=== PATIENT | female | born 1945 | race Caucasian/White ===

== ENCOUNTER 2018-04-20 21:57 | Observation (INO) | payer MEDICARE, OTHER ==
[~2018-04-20] VITALS: Ht 162.6 cm; Wt 63.1 kg
[2018-04-20 22:07] VITALS: BP 125/74; PULSE 90; RESP 18; TEMP 98.1; O2SAT 96
--- NOTE | 2018-04-20 22:20 | PD ---
HPI Chief Complaint: Abdominal Pain Time Seen by Provider: 22:19 Travel History International Travel<30 days: No Contact w/Intl Traveler<30days: No Traveled to known affect area: No History of Present Illness HPI Patient comes in providing a 3 day history of upper abdominal pain epigastric, right upper quadrant and left upper quadrant pain is rated as a 7 out of 10... Intermittently occurring and lasting minutes at a time. However over the last day or so the patient has started to notice that the pain appears to be radiating up towards her neck and left shoulder..... No alleviating or aggravating factors. Patient denies any associated factors such as fever, rash , cough, runny nose, sore throat, nausea, vomiting, diarrhea. Primary care doctor is Dr. Maury Burris, [employer] Dr. 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 PFSH Social History Tobacco Use: No Allergies-Medications (Allergen,Severity, Reaction): Coded Allergies: No Known Allergies (Unverified , 04/20/18) Reported Meds & Prescriptions Reported Meds & Active Scripts Active Reported Digoxin 0.125 Mg Tab 0.125 Mg PO DAILY Diltiazem CD 24 HR 360 Mg Capcr 360 Mg PO DAILY Advair Diskus Inh (Fluticasone-Salmeterol Inh) 250-50 Mcg/Blist Aer 1 Puff INH BID Rinse mouth after use. Pravastatin 20 Mg Tab 20 Mg PO DAILY Review of Systems General / Constitutional: No: Fever Eyes: No: Visual changes HENT: No: Headaches Cardiovascular: Positive: Chest Pain or Discomfort Respiratory: No: Shortness of Breath Gastrointestinal: Positive: Abdominal Pain Genitourinary: No: Dysuria Musculoskeletal: No: Pain Skin: No Rash Neurologic: No: Weakness Psychiatric: No: Depression Endocrine: No: Polydipsia Hematologic/Lymphatic: No: Easy Bruising Physical Exam Narrative GENERAL: Well-nourished, well-developed patient in no apparent distress. SKIN: Warm and dry. HEAD: Atraumatic. Normocephalic. EYES: Pupils equal and round. No scleral icterus. No injection or drainage. ENT: No nasal bleeding or discharge. Mucous membranes pink and moist. NECK: Trachea midline. No JVD. CARDIOVASCULAR: Regular rate and rhythm. no rubs or gallops RESPIRATORY: No accessory muscle use. Clear to auscultation. Breath sounds equal bilaterally. GASTROINTESTINAL: Abdomen soft, non-tender, nondistended. No rebound or guarding MUSCULOSKELETAL: Extremities without clubbing, cyanosis, or edema. No obvious deformities. NEUROLOGICAL: Awake and alert. No obvious cranial nerve deficits. Motor grossly within normal limits. Five out of 5 muscle strength in the arms and legs. Normal speech. PSYCHIATRIC: Appropriate mood and affect; insight and judgment normal. Data Data Last Documented VS Orders Orders Electrocardiogram (04/20/18 22:25) B-Type Natriuretic Peptide (04/20/18 22:) Ckmb (Isoenzyme) Profile (04/20/18 22:) Complete Blood Count With Diff (04/20/18:) Comprehensive Metabolic Panel (04/20/18:) D-Dimer (04/20/18:) Prothrombin Time / Inr (Pt) (04/20/18:) Act Partial Throm Time (Ptt) (04/20/18:) Troponin I (04/20/18:) Lipase (04/20/18 22:25) Chest, Single Ap (04/20/18 22:25) Ecg Monitoring (04/20/18 22:) Bilateral Bp Monitoring (04/20/18:) Iv Access Insert/Monitor (04/20/18:) Oximetry (04/20/18 22:) Oxygen Administration (04/20/18 22:25) Morphine Inj (Morphine Inj) (04/20/18 22:30) Sodium Chloride 0.9% Flush (Ns Flush) (04/20/18:30) Metoclopramide Inj (Reglan Inj) (04/20/18 22:30) Aspirin Chew (Aspirin Chew) (04/20/18 23:30) Nitroglycerin 2% Oint (Nitroglycerin 2% (04/20/18 23:30) Ct Abd/Pel W/O Iv Contrast (04/20/18 23:29) Admit Order (Ed Use Only) (04/20/18 23:38) Labs Laboratory Tests Test 04/20/18 22:30 White Blood Count 8.4 TH/MM3 Red Blood Count 4.36 MIL/MM3 Hemoglobin 13.4 GM/DL Hematocrit 39.2 % Mean Corpuscular Volume 90.0 FL Mean Corpuscular Hemoglobin 30.7 PG Mean Corpuscular Hemoglobin Concent 34.1 % Red Cell Distribution Width 12.7 % Platelet Count 242 TH/MM3 Mean Platelet Volume 8.2 FL Neutrophils (%) (Auto) 68.1 % Lymphocytes (%) (Auto) 23.8 % Monocytes (%) (Auto) 4.6 % Eosinophils (%) (Auto) 2.9 % Basophils (%) (Auto) 0.6 % Neutrophils # (Auto) 5.7 TH/MM3 Lymphocytes # (Auto) 2.0 TH/MM3 Monocytes # (Auto) 0.4 TH/MM3 Eosinophils # (Auto) 0.2 TH/MM3 Basophils # (Auto) 0.1 TH/MM3 CBC Comment DIFF FINAL Differential Comment Prothrombin Time 11.2 SEC Prothromb Time International Ratio 1.1 RATIO Activated Partial Thromboplast Time 24.4 SEC D-Dimer Quantitative (PE/DVT) 0.48 MG/L FEU Blood Urea Nitrogen 10 MG/DL Creatinine 0.78 MG/DL Random Glucose 86 MG/DL Total Protein 7.4 GM/DL Albumin 3.6 GM/DL Calcium Level 8.6 MG/DL Alkaline Phosphatase 72 U/L Aspartate Amino Transf (AST/SGOT) 12 U/L Alanine Aminotransferase (ALT/SGPT) 19 U/L Total Bilirubin 0.3 MG/DL Sodium Level 134 MEQ/L Potassium Level 4.1 MEQ/L Chloride Level 101 MEQ/L Carbon Dioxide Level 26.0 MEQ/L Anion Gap 7 MEQ/L Estimat Glomerular Filtration Rate 73 ML/MIN Total Creatine Kinase 87 U/L Troponin I LESS THAN 0.02 NG/ML B-Type Natriuretic Peptide 32 PG/ML Lipase 152 U/L [facility] Medical Decision Making Medical Screen Exam Complete: Yes Emergency Medical Condition: Yes Medical Record Reviewed: Yes Interpretation(s) Pulse ox with excellent pleth wave, pulse oximetry is between 96 and 100 which is within normal limits on room air. EKG shows normal sinus rhythm, 82 bpm, normal intervals, no evidence of any ST elevation GA, nonspecific ST-T changes Differential Diagnosis Pancreatitis versus biliary colic versus colitis versus diverticulitis versus atypical STEMI versus atypical non-STEMI versus atypical chest pain Narrative Course CBC shows no leukocytosis no anemia normal platelet count and no left shift Coagulation profile is within normal limits D-dimer is negative Electrolytes are all within normal limits, normal kidney liver and pancreatic functions. First set of cardiac enzymes negative The patient's evaluation thus far has revealed negative abdominal workup, however it was somewhat worrisome that the patient experienced some radiation to her neck, thus I believe it would be prudent to have the patient admitted for observation to rule out for atypical presentation of cardiac event. Diagnosis Primary Impression: Atypical chest Admitting Information Admitting Physician Requests: Observation Sukhwinder Escalante MD April 20, 2018 22:20
[2018-04-20] MEDS ORDERED: DIGO0.12 PO (22:26)
[2018-04-20] MEDS ORDERED: ADVA250A INH (22:26)
[2018-04-20] MEDS ORDERED: DILT360C12 PO (22:26)
[2018-04-20] MEDS ORDERED: DILT120T PO (22:26)
[2018-04-20] MEDS ORDERED: PRAV20TA2 PO (22:26)
[2018-04-20] MEDS ORDERED: METOCLOPRAMIDE HCL 10 MG/2 ML VIAL IV PUSH ONE (22:30)
[2018-04-20] MEDS ORDERED: MORPHINE SULFATE 4 MG/ML INJ IV PUSH ONE (22:30)
[2018-04-20] MEDS ORDERED: SODIUM CHLORIDE 0.9% FLUSH 10 ML FLUSH IVF PRN (22:30)
[2018-04-20 22:33] VITALS: BP 143/80; PULSE 90; RESP 18; O2SAT 99
[2018-04-20 22:39] LABS: AUTOMATED NEUTROPHIL # 5.7 TH/MM3 (1.8-7.7); BASOPHIL # 0.1 TH/MM3 (0-0.2); BASOPHIL % 0.6 % (0.0-2.0); EOSINOPHIL # 0.2 TH/MM3 (0-0.4); EOSINOPHIL % 2.9 % (0.0-4.0); HEMATOCRIT 39.2 % (35.0-46.0); HEMOGLOBIN 13.4 GM/DL (11.6-15.3); LYMPH % 23.8 % (9.0-44.0); MEAN CORPUSCULAR HEMOGLOBIN 30.7 PG (27.0-34.0); MEAN CORPUSCULAR HGB CONC 34.1 % (32.0-36.0); MEAN PLATELET VOLUME 8.2 FL (7.0-11.0); MONO % 4.6 % (0.0-8.0); MONOCYTE # 0.4 TH/MM3 (0-0.9); NEUT % 68.1 % (16.0-70.0); PLATELET COUNT 242 TH/MM3 (150-450); RED BLOOD COUNT 4.36 MIL/MM3 (4.00-5.30); RED CELL DISTRIBUTION WIDTH 12.7 % (11.6-17.2); WHITE BLOOD COUNT 8.4 TH/MM3 (4.0-11.0)
--- NOTE | 2018-04-20 22:46 | RADRPT ---
EXAM DATE: 04/20/2018 10:38 PM EDT AGE/SEX: 72 years / Female INDICATIONS: Pain right and left lower anterior chest, short of breath CLINICAL DATA: This is the patient's initial encounter. Patient reports that signs and symptoms have been present for 1 day and indicates a pain score of 10/10. MEDICAL/SURGICAL HISTORY: Chronic obstructive pulmonary disease. Cardiovascular disease. CABG. COMPARISON: No prior [facility] exams available for comparison. FINDINGS: Lungs are hyperinflated. There is diffuse interstitial prominence. There is no evidence of consolidat ing airspace disease mass densities or effusions. Heart is normal in size. Median sternotomy wires are noted. Osseous structures are intact. CONCLUSION: COPD with chronic appearing interstitial lung disease. No evidence of consolidating airspace disease Electronically signed by: Guanako Casas MD 04/20/2018 10:44 PM EDT
[2018-04-20 22:47] LABS: CHLORIDE 101 MEQ/L (98-107); SODIUM (NA) 134 MEQ/L (136-145)
[2018-04-20 22:49] VITALS: BP 124/73; PULSE 78; RESP 16; O2SAT 99
[2018-04-20 22:51] LABS: ALBUMIN 3.6 GM/DL (3.4-5.0); CALCIUM 8.6 MG/DL (8.5-10.1); GLUCOSE,RANDOM 86 MG/DL (74-106)
[2018-04-20 22:52] LABS: BLOOD UREA NITROGEN 10 MG/DL (7-18)
[2018-04-20 22:54] LABS: ALT (GPT) 19 U/L (10-53); AST (GOT) 12 U/L (15-37); CREATININE 0.78 MG/DL (0.50-1.00); GLOMERULAR FILTRATION RATE 73 ML/MIN (>89); INTERNATIONAL NORMALIZED RATIO 1.1 RATIO; PROTHROMBIN TIME - PATIENT 11.2 SEC (9.8-11.6)
[2018-04-20 22:56] LABS: TOTAL BILIRUBIN ADULT 0.3 MG/DL (0.2-1.0); TOTAL PROTEIN 7.4 GM/DL (6.4-8.2)
[2018-04-20 22:57] LABS: ALKALINE PHOSPHATASE 72 U/L (45-117)
[2018-04-20 22:59] LABS: TROPONIN I LESS THAN 0.02 NG/ML (0.02-0.05)
[2018-04-20 23:05] LABS: D-DIMER 0.48 MG/L FEU (0.00-0.50)
[2018-04-20] MEDS ORDERED: ASPIRIN 81 MG CHEW TAB PO ONE (23:30)
[2018-04-20] MEDS ORDERED: NITROGLYCERIN 2% OINT 1 GM PACKET TOP ONE (23:30)
--- NOTE | 2018-04-21 00:11 | RADRPT ---
EXAM DATE: 04/21/2018 12:02 AM EDT AGE/SEX: 72 years / Female INDICATIONS: Bilateral upper quadrant pain x 3 days. CLINICAL DATA: This is the patient's initial encounter. Patient reports that signs and symptoms have been present for 3 days and indicates a pain score of 7/10. MEDICAL/SURGICAL HISTORY: Cardiovascular disease. Chronic obstructive pulmonary disease. Hyste rectomy. Fusion, cervical. Cardiac surgery to remove tumor. RADIATION DOSE: 8.34 CTDI (mGy) COMPARISON: No prior exams available for comparison. TECHNIQUE: Multiple contiguous axial images were obtained through the abdomen. Images were obtained using multiple row detector helical technique. Using dose reduction techniques, radiation dose was ke pt as low as reasonably achievable to obtain optimal diagnostic quality images. FINDINGS: Abdomen CT: The liver, spleen, pancreas, kidneys, adrenals are unremarkable. Tiny splenic splenule is seen. There is no evidence for any stones in the kidneys or the course of the ureters on either side. There is n o hydronephrosis. There is no evidence for any appreciable pathological adenopathy, free fluid, or bowel obstruction. There is scarring in right middle lobe and lingula. There are atherosclerotic guillermo cifications involving the aorta and iliac arteries chronic in nature. Pelvic CT: There is no evidence for mass, abscess formation, or any significant adenopathy within the pelvis. T here is moderate amount of stool in the colon. CONCLUSION: Essentially unremarkable study except for stool and chronic atherosclerotic calcificatio ns of the aorta. Electronically signed by: Claudio Lima MD 04/21/2018 12:10 AM EDT
[2018-04-21 00:27] VITALS: BP 116/57; PULSE 81; RESP 16; O2SAT 96
[2018-04-21 01:25] VITALS: BP 119/69; PULSE 78; RESP 16; O2SAT 99
[2018-04-21 02:39] VITALS: PULSE 83
[2018-04-21] MEDS ORDERED: MORPHINE SULFATE 4 MG/ML INJ IV PUSH PRN (03:45)
[2018-04-21] MEDS ORDERED: ACETAMINOPHEN 325 MG TAB PO PRN (03:45)
[2018-04-21] MEDS ORDERED: SENNOSIDES 8.6 MG TAB PO PRN (03:45)
[2018-04-21] MEDS ORDERED: NALOXONE HCL 0.4 MG/ML AMP IV PUSH PRN (03:45)
[2018-04-21] MEDS ORDERED: SODIUM CHLORIDE 0.9% FLUSH 10 ML FLUSH IV FLUSH PRN (03:45)
[2018-04-21] MEDS ORDERED: MAGNESIUM HYDROXIDE SUSP 30 ML CUP PO PRN (03:45)
[2018-04-21] MEDS ORDERED: BISACODYL 10 MG SUPP RECTAL PRN (03:45)
[2018-04-21] MEDS ORDERED: LACTULOSE SYRUP 20 GM/30 ML CUP PO PRN (03:45)
[2018-04-21 04:13] VITALS: BP 114/66; PULSE 84; RESP 20; TEMP 96.4; O2SAT 91
--- NOTE | 2018-04-21 07:53 | EKG ---
Date Performed: 04/21/2018 Time Performed: 04:17:22 PTAGE: 72 years EKG: Sinus rhythm NONSPECIFIC ST ABNORMALITY ABNORMAL ECG PREVIOUS TRACING : 04/21/2018 01.51 No significant change from previous tracing noted. DOCTOR: Earnest Almonte Interpretating Date/Time 04/21/2018 07:51:55
[2018-04-21 08:00] VITALS: PULSE 83
--- NOTE | 2018-04-21 08:01 | EKG ---
Date Performed: 04/21/2018 Time Performed: 01:51:54 PTAGE: 72 years EKG: Sinus rhythm NONSPECIFIC ST DEPRESSION BORDERLINE ECG PREVIOUS TRACING : 04/20/2018 23.07 No significant change from previous tracing noted. DOCTOR: Earnest Almonte Interpretating Date/Time 04/21/2018 07:59:47
--- NOTE | 2018-04-21 08:06 | EKG ---
Date Performed: 04/20/2018 Time Performed: 23:07:18 PTAGE: 72 years EKG: Sinus rhythm LOW QRS VOLTAGE IN PRECORDIAL LEADS BORDERLINE ECG NO PREVIOUS TRACING DOCTOR: Earnest Almonte Interpretating Date/Time 04/21/2018 08:04:12
[2018-04-21 08:35] VITALS: BP 103/58; PULSE 81; RESP 17; TEMP 97.7; O2SAT 92
[2018-04-21] MEDS ORDERED: SODIUM CHLORIDE 0.9% FLUSH 10 ML FLUSH IV FLUSH SCH (09:00)
--- NOTE | 2018-04-21 09:08 | HHI.DCPOC ---
Discharge Care Plan Diagnosis: (1) Abdominal pain Goals to Promote Your Health * To prevent worsening of your condition and complications * To maintain your health at the optimal level Directions to Meet Your Goals Take your medications as prescribed Follow your dietary instruction Follow activity as directed Keep your appointments as scheduled Take your immunizations and boosters as scheduled If your symptoms worsen call your PCP, if no PCP go to Urgent Care Center or Emergency Room Smoking is Dangerous to Your Health. Avoid second hand smoke Call the 24-hour hour crisis hotline for domestic abuse at Norman Khan April 21, 2018 09:08
--- NOTE | 2018-04-21 09:51 | HHI.HP ---
[facility] Service [facility] Primary Care Physician Nathanael Linda Admission Diagnosis ATYPICAL CP R/O [place] Diagnoses: (1) Abdominal pain Diagnosis: Principal Travel History International Travel<30 Days: No Contact w/Intl Traveler <30 Da: No Traveled to Known Affected Are: No History of Present Illness Written by Norman Khan, acting as scribe for Dr. Smallwood on 04/21/18 at 09: 51. 72-year-old female with known history of hyperlipidemia, chronic obstructive pulmonary disease, arrhythmia, who presented to the hospital because of upper abdominal pain. Patient states that for 3 days that she has had a constant pressure-like pain in her upper abdomen epigastric region. She states that intermittently she can feel a pressure sensation in the mid part of her chest which has a crescendo type pain from a 2/10 on a pain scale up to a 8/ 10 on a pain scale. States that the pain does come back every couple of hours and usually lasts for a few minutes at a time. Because she had the pain yesterday and it was 8/10 and she has not had any improvement she thought she might be having a heart attack so she called 911. Patient denied any nausea, vomiting, shortness of breath, dyspnea, diaphoresis, lightheadedness, dizziness. The radiator specialist evaluated the patient and told that everything was normal at that time. However they recommended her to go to the hospital so her drove her to the hospital for evaluation. Patient had a complete workup with laboratory studies, EKGs, chest x-ray, CT of the abdomen which everything was unremarkable to determine any etiology of her discomfort. He is recommended by the ER physician that the patient be observed in the hospital for further recommendations. Patient indicates that she usually goes to Dr. Almonte, for her cardiology needs and last time that she saw him was 2 years ago. She indicates that she had a last stress test and workup 3 years ago. She cannot have a exercise stress test due to her heart rate and valvular issues. And she will not undergo any myocardial perfusion study because she had an adverse reaction to it the last time. Presently the patient is completely asymptomatic. The pain resolved at approximately night last night without any form of treatment. Patient is asking if she can go home. Review of Systems Gastrointestinal: COMPLAINS OF: Abdominal pain Except as stated in HPI: all other systems reviewed are Neg Past Family Social History Past Medical History Cardiac valve problems Cardiac arrhythmia Hyper lipidemia Chronic obstructive pulmonary disease Chronic tobacco use Past Surgical History Open heart surgery for valvular surgery Cervical spine fusion Hysterectomy Reported Medications Reported Meds & Active Scripts Active Reported Digoxin 0.125 Mg Tab 0.125 Mg PO DAILY Diltiazem CD 24 HR 360 Mg Capcr 360 Mg PO DAILY Advair Diskus Inh (Fluticasone-Salmeterol Inh) 250-50 Mcg/Blist Aer 1 Puff INH BID Rinse mouth after use. Pravastatin 20 Mg Tab 20 Mg PO DAILY Allergies: Coded Allergies: No Known Allergies (Unverified , 04/20/18) Family History Family history was reviewed and significant for mother with ovarian cancer, father with bladder cancer, congestive heart failure. Brother with diabetes and heart disease Physical Exam Vital Signs Vital Signs Date Time Temp Pulse Resp B/P (MAP) Pulse Ox O2 Delivery O2 Flow Rate FiO2 04/21/18 08:35 97.7 81 17 103/58 (73) 92 04/21/18 08:00 83 04/21/18 04:13 96.4 84 20 114/66 (82) 91 04/21/18 02:39 83 04/21/18 01:25 04/21/18 01:25 78 16 119/69 (86) 99 Room Air 04/21/18 00:27 81 16 116/57 (76) 96 Room Air 04/20/18 22:49 78 16 124/73 (90) 99 Nasal Cannula 2.00 04/20/18 22:33 90 18 143/80 (101) 99 Nasal Cannula 2.00 04/20/18 22:33 99 Nasal Cannula 2.00 04/20/18 22:07 98.1 90 18 125/74 (91) 96 Physical Exam GENERAL: Well-developed, well-nourished, in no acute distress. alert and orientated HEENT: Head is normocephalic without any lesions or masses noted. Facial features are symmetric. Eyes: Pupils equal round reactive to light. Extraocular muscles are intact. Conjunctivae were clear. Oropharyngeal: Pharynx without any erythema edema. Tongue is midline without deviation. Buccal mucosa is moist without any masses or lesions NECK: Supple without any masses. Trachea midline no deviation. No JVD, no bruits are appreciated CARDIAC: Regular rhythm, regular rate. S1/S2 are heard. No murmurs gallops or rubs. LUNGS: Clear to auscultation bilaterally. No wheeze, rhonchi or rales. No use of accessory muscles on inspiration or expiration. ABDOMEN: Soft, nontender. Nondistended. Bowel sounds heard in all 4 quadrants. No organomegaly or masses. Negative rebound, negative guarding EXTREMITIES: No edema, pulses are equal bilaterally. No cyanosis or clubbing NEUROLOGY: Mood and affect appear appropriate. Cranial nerves II through XII grossly intact. Muscle strength 5/5 in upper and lower extremities bilaterally. Deep tendon reflexes are 2+ in upper and lower extremities bilaterally. Laboratory Laboratory Tests Test 04/20/18 22:30 04/21/18 01:49 04/21/18 04:25 White Blood Count 8.4 Red Blood Count 4.36 Hemoglobin 13.4 Hematocrit 39.2 Mean Corpuscular Volume 90.0 Mean Corpuscular Hemoglobin 30.7 Mean Corpuscular Hemoglobin Concent 34.1 Red Cell Distribution Width 12.7 Platelet Count 242 Mean Platelet Volume 8.2 Neutrophils (%) (Auto) 68.1 Lymphocytes (%) (Auto) 23.8 Monocytes (%) (Auto) 4.6 Eosinophils (%) (Auto) 2.9 Basophils (%) (Auto) 0.6 Neutrophils # (Auto) 5.7 Lymphocytes # (Auto) 2.0 Monocytes # (Auto) 0.4 Eosinophils # (Auto) 0.2 Basophils # (Auto) 0.1 CBC Comment DIFF FINAL Differential Comment Prothrombin Time 11.2 Prothromb Time International Ratio 1.1 Activated Partial Thromboplast Time 24.4 D-Dimer Quantitative (PE/DVT) 0.48 Blood Urea Nitrogen 10 Creatinine 0.78 Random Glucose 86 Total Protein 7.4 Albumin 3.6 Calcium Level 8.6 Alkaline Phosphatase 72 Aspartate Amino Transf (AST/SGOT) 12 Alanine Aminotransferase (ALT/SGPT) 19 Total Bilirubin 0.3 Sodium Level 134 Potassium Level 4.1 Chloride Level 101 Carbon Dioxide Level 26.0 Anion Gap 7 Estimat Glomerular Filtration Rate 73 Total Creatine Kinase 87 Troponin I LESS THAN 0.02 LESS THAN 0.02 LESS THAN 0.02 B-Type Natriuretic Peptide 32 Lipase 152 Result Diagram: 04/20/18222904/20/182229 Imaging Last Impressions Abdomen/Pelvis CT 04/20/182328 Signed Impressions: CONCLUSION: Essentially unremarkable study except for stool and chronic athero sclerotic calcifications of the aorta. Chest X-Ray 04/20/182224 Signed Impressions: CONCLUSION: COPD with chronic appearing interstitial lung disease. No evidence of consolidating airspace disease Caprini VTE Risk Assessment Caprini VTE Risk Assessment: No/Low Risk (score <= 1) Caprini Risk Assessment Model Point Value = 1 Point Value = 2 Point Value = 3 Point Value = 5 Age 41-60 Minor surgery BMI > 25 kg/m2 Swollen legs Varicose veins or History of unexplained or recurrent spontaneous Oral contraceptives or hormone replacement Sepsis (< 1 month) Serious lung disease, including pneumonia (< 1 month) Abnormal pulmonary function Acute myocardial infarction Congestive heart failure (< 1 month) History of inflammatory bowel disease Medical patient at bed rest Age 61-74 Arthroscopic surgery Major open surgery (> 45 min) Laparoscopic surgery (> 45 min) Malignancy Confined to bed (> 72 hours) Immobilizing plaster cast Central venous access Age >= 75 History of VTE Family history of VTE Factor V Leiden Prothrombin [id number] Lupus anticoagulant Anticardiolipin antibodies Elevated serum homocysteine Heparin-induced thrombocytopenia Other congenital or acquired thrombophilia Stroke (< 1 month) Elective arthroplasty Hip, pelvis, or leg fracture Acute spinal cord injury (< 1 month) Prophylaxis Regimen Total Risk Factor Score Risk Level Prophylaxis Regimen 0-1 Low Early ambulation 2 Moderate Order ONE of the following: *Sequential Compression Device (SCD) *Heparin 5000 units SQ BID 3-4 Higher Order ONE of the following medications: *Heparin 5000 units SQ TID *Enoxaparin/Lovenox 40 mg SQ daily (WT < 150 kg, CrCl > 30 mL/min) *Enoxaparin/Lovenox 30 mg SQ daily (WT < 150 kg, CrCl > 10-29 mL/min) *Enoxaparin/Lovenox 30 mg SQ BID (WT < 150 kg, CrCl > 30 mL/min) AND/OR *Sequential Compression Device (SCD) 5 or more Highest Order ONE of the following medications: *Heparin 5000 units SQ TID (Preferred with Epidurals) *Enoxaparin/Lovenox 40 mg SQ daily (WT < 150 kg, CrCl > 30 mL/min) *Enoxaparin/Lovenox 30 mg SQ daily (WT < 150 kg, CrCl > 10-29 mL/min) *Enoxaparin/Lovenox 30 mg SQ BID (WT < 150 kg, CrCl > 30 mL/min) AND *Sequential Compression Device (SCD) Assessment and Plan Assessment and Plan 72-year-old female who originally presented the hospital with bilateral upper abdominal pain described as a constant pressure with intermittent midsternal pressure. Atypical abdominal/chest discomfort -Patient had a complete workup with laboratory studies, CT scan of the abdomen and pelvis, chest x-ray. There is no finding to indicate any acute intra- abdominal etiology of her symptoms -Patient does have increased risk factors for coronary artery disease to include age, female without any exogenous hormones, hyperlipidemia, tobacco use -Patient was ruled out for acute coronary event with serial cardiac enzymes which remained negative -Serial EKGs did not indicate any acute changes or abnormality -Patient unable to perform exercise stress test due to cardiac valve condition. Patient will not undergo any myocardial perfusion study because she had adverse reaction in the past -Dr. Almonte was contacted and reviewed the case with him. He indicates that there is low threshold that her symptoms are cardiac related. He indicates since patient has been ruled out for acute coronary event with serial cardiac enzymes and serial EKGs. The patient can be safely discharged with outpatient follow-up. Hyperlipidemia, arrhythmia -Home medications have been continued Chronic obstructive pulmonary disease any chronic smoking patient -Continue O2 to maintain O2 saturation greater than 88% -Patient was counseled on smoking cessation DVT prevention -Sequential compression devices Discharge disposition Discharge home in stable condition Activity: Ad lynne. Diet: Healthy heart diet Medication per medication reconciliation Follow-up with primary medical doctor in 1 week This note was transcribed by bina Khan. I, Dr. John Smallwood personally performed the history, physical exam, and medical decision making; and confirmed the accuracy of the information in the transcribed note. Authenticated by Dr. John Smallwood on 04/21/18 at 09:51. Code Status Full code Discussed Condition With Patient, daughter Problem Qualifiers (1) Abdominal pain: Qualified Codes: R10.10 - Upper abdominal pain, unspecified Norman Khan April 21, 2018 09:51 John Smallwood MD April 21, 2018 09:52
== END 2018-04-21 10:57 | disposition home or self-care (01) ==
LOC: PHED 21:57 → PHEDA 23:40 → PH3B 04-21 02:17
PROVIDERS: ADMIT Hospitalist; ATTEND Hospitalist
DX: R10.12 Left upper quadrant pain (principal); R10.11 Right upper quadrant pain; R10.13 Epigastric pain; J44.9 Chronic obstructive pulmonary disease, unspecified; E78.5 Hyperlipidemia, unspecified; I49.9 Cardiac arrhythmia, unspecified; R06.9 Unspecified abnormalities of breathing; R94.31 Abnormal electrocardiogram [ECG] [EKG]; F17.210 Nicotine dependence, cigarettes, uncomplicated; Z71.6 Tobacco abuse counseling; Z98.1 Arthrodesis status
CPT/HCPCS: 71045; 74176; 80053; 82550; 83690; 83880; 84484; 85025; 85379; 85610; 85730; 93005; 96374; 96375; 99285; G0378; J2270; J2765